=== PATIENT | male | born 1970 | race Caucasian/White ===

== ENCOUNTER 2019-08-20 11:07 | Emergency (ER) | payer SELFPAY ==
[~2019-08-20] VITALS: Ht 182.9 cm; Wt 117.9 kg
[2019-08-20] MEDS ORDERED: Cymbalta20 MG (11:34)
[2019-08-20] MEDS ORDERED: CITRATE OF MAG296 ML PO (13:22)
[2019-08-20] MEDS ORDERED: BISA5EC PO (13:22)
[2019-08-31] MEDS ORDERED: HYDR1TAB94 PO (09:07)
== END 2019-08-20 13:45 | disposition home or self-care (01) ==
LOC: ER 11:07
DX: K59.00 Constipation, unspecified (principal); Z87.891 Personal history of nicotine dependence; Z79.899 Other long term (current) drug therapy
CPT/HCPCS: 74018; 99283-25

== ENCOUNTER 2019-09-09 12:41 | Inpatient (IN) | payer OTHER ==
[~2019-09-09] VITALS: Ht 182.9 cm; Wt 122.0 kg
[~2019-09-09 12:41] MED LIST: BISA5EC PO; CITRATE OF MAG296 ML PO; Cymbalta20 MG PO; HYDR1TAB94 PO
--- NOTE | 2019-09-09 13:44 | NUR ---
Ambulatory in Day Surgery.PT REPORTS 6/10 LEFT ARM PAIN. SPLINT AND MARYJANE WRAP IN PLACE TO LEFT ARM. ELEVATED ON PILLOW. HISTORY AND ALLERGIES REVIEWED. NPO STATUS CONFIRMED. LUNGS CLEAR-SATS>90% ON RA.
--- NOTE | 2019-09-10 03:11 | NUR ---
Patient A/O x4. VSS. Complaints of moderate pain to Left arm. Medicated as ordered; pain managed. Tolerating PO. Ambulating to bathroom, voiding freely. Saline locked. CMS intact.
[2019-09-10 03:55] LABS: BASOPHILS ABSOLUTE AUTO 0.03 K/mm3 (0.00-0.23); BASOPHILS PERCENT AUTO 0 % (0-2); EOSINOPHILS ABSOLUTE AUTO 0.01 K/mm3 (0.00-0.68); EOSINOPHILS PERCENT AUTO 0 % (0-6); Hematocrit 46.2 % (37.0-53.0); Hemoglobin 14.6 g/dL (13.5-17.5); IMMATURE GRAN ABSOLUTE AUTO 0.05 K/mm3 (0.00-0.10); IMMATURE GRAN PERCENT AUTO 0 % (0-1); LYMPHOCYTES ABSOLUTE AUTO 1.72 K/mm3 (0.84-5.20); LYMPHOCYTES PERCENT AUTO 10 % (21-46); MONOCYTES ABSOLUTE AUTO 1.08 K/mm3 (0.16-1.47); MONOCYTES PERCENT AUTO 6 % (4-13); Mean Corpuscular HGB 26.9 pg (26.0-34.0); Mean Corpuscular HGB Conc 31.6 g/dL (31.5-36.5); Mean Corpuscular Volume 85 fL (80-100); Mean Platelet Volume 10.4 fL (9.1-12.4); NEUTROPHILS ABSOLUTE AUTO 14.23 K/mm3 (1.96-9.15); NEUTROPHILS PERCENT AUTO 83 % (41-73); Platelet Count 377 K/mm3 (150-400); RDW Coefficient Variation 13.2 % (11.7-14.2); RDW Standard Deviation 41.1 fL (35.1-46.3); Red Blood Cell Count 5.43 M/mm3 (4.30-5.90); White Blood Cell Count 17.12 K/mm3 (4.00-11.30)
--- NOTE | 2019-09-10 07:34 | NUR ---
PT REPORTS ABLE TO MOVE L ARM SOME NOW IT APPEARS THAT THE BLOCK THEY GAVE ME IS WEARING OFF. PT REPORTS PAIN IS AT AN 8/10 BUT THAT HE DOES NOT NEED PAIN MEDICATION UNTIL THE PAIN IS A 9/10 BECAUSE HE DEALS WITH CHRONIC PAIN TO BILATERAL ANKLES/FEET. PT HAS EXTERNAL FIXATION TO L WRIST AREA. CAP REFILL IS BRISK TO FINGERS. PT HAS MINIMAL SWELLING TO FINGERS. PT HAS LUE ELEVATED ON PILLOWS WITH ICE IN PLACE. PT STATES HE HAS A RASH ON LEFT BICEP AREA THAT HE GETS WHEN HE HAS STRESS, HE REPORTS HAVING IT A LITTLE BIT LOWER RECENTLY AND THAT SITE HAS HEALED UP. DISCUSSED PAIN MGMT WITH PT. PT REPORTS DOES NOT SMOKE OR DRINK. PT IS ABLE TO WIGGLE FINGERS WITHOUT DIFFICULTY.
--- NOTE | 2019-09-10 10:03 | NUR ---
DR REZA AND CYNDY HERE TO SEE PT. DISCUSSED PT'S STATUS.
--- NOTE | 2019-09-10 16:07 | NUR ---
DR REZA RECENTLY NOTIFIED OF PT HAVING INCREASED PAIN TO L WRIST. PT CAP REFILL WNL LESS THAN 3 SECONDS. PT BEEN ICING AND ELEVATING IT. SEE ORDERS.
--- NOTE | 2019-09-10 16:50 | NUR ---
DISCUSSED PAIN MGMT WITH PT. PT REPORTS THAT IT FEELS LIKE THE BLOCK THAT HE HAD HAS WORN OFF. PT MED FOR PAIN.
--- NOTE | 2019-09-10 17:59 | NUR ---
SHIFT [employer] PT EATING AND DRINKING. PT VOIDING. PT PAIN INCREASED THIS AFTERNOON, PT FELT THAT THE BLOCK WAS WORE OFF. WAS NOTIFIED. SEE ORDERS. PT MED FOR PAIN ORDERED PRN. PT REPORTED PAIN WAS BETTER THIS EVENING AT TOLERABLE LEVEL. PT UP IND WITH STEADY GAIT. PT USING CALL LIGHT APPR.
--- NOTE | 2019-09-11 07:43 | NUR ---
SHIFT SUMMARY POD#2 LEFT ORIF WITH EXTERNAL HARDWARE. AAOX4. DISCOMFORT CONTROLLED WITH 20MG ROXICODONE Q4H + EXTENDED RELEASE Q12 + 1MG IV DILAUDID X3 THIS SHIFT FOR BREAKTHROUGH. NO NAUSEA/EMESIS. DRESSING TO LUE WITH SCANT AMOUNT RED DRY DRAINAGE, NO INCREASE IN DRAINAGE THIS SHIFT. PT UP SBA IN ROOM, AMBULATES WELL. POSSIBLE DC TODAY IF PAIN IS CONTROLLED. PT SITTING UP IN BED AT THIS TIME, CALL STEVE GUSMAN. REPORT TO DAY SHIFT RN.
[2019-09-11] MEDS ORDERED: Percocet 7.5-31 EACH PO (08:29)
--- NOTE | 2019-09-11 12:03 | NUR ---
1137 discharged to home with
== END 2019-09-11 11:32 | disposition home or self-care (01) | DRG 512 ==
LOC: ORSCMMR 12:41 → SURS 20:37 → ORSCMMR 20:38 → SURS 09-10 10:11
PROVIDERS: ADMIT Orthopaedic Surgery
PROC: 0PSJ04Z Reposition Left Radius with Internal Fixation Device, Open Approach (ICD-10-PCS; principal; 2019-09-09 14:00)
DX: S52.572A Other intraarticular fracture of lower end of left radius, initial encounter for closed fracture (principal); S63.015A Dislocation of distal radioulnar joint of left wrist, initial encounter; W13.2XXA Fall from, out of or through roof, initial encounter
CPT/HCPCS: 36415; 73100; 85025; 90686; 97165; 97530; A9270; C1713; G0378; J0690; J1100; J1170; J2250; J2405; J2704; J3010; J7120

== ENCOUNTER 2019-12-11 06:03 | Day surgery (SDC) | payer OTHER ==
[~2019-12-11] VITALS: Ht 182.9 cm; Wt 121.2 kg
[~2019-12-11 06:03] MED LIST changes: +IBUP800; +Percocet 7.5-31 EACH PO
--- NOTE | 2019-12-11 08:08 | NUR ---
12/11/19 0808 Becki Matamoros HARDWARE CLEANED AND RETURNED TO PT PER PT REQUEST.
== END 2019-12-11 10:00 | disposition home or self-care (01) ==
LOC: ORSCSDS 06:03
PROVIDERS: Orthopaedic Surgery
PROC: 0PPJ04Z Removal of Internal Fixation Device from Left Radius, Open Approach (ICD-10-PCS; principal; 2019-12-11 07:30)
DX: S52.572D Other intraarticular fracture of lower end of left radius, subsequent encounter for closed fracture with routine healing (principal); S63.015D Dislocation of distal radioulnar joint of left wrist, subsequent encounter; Z47.2 Encounter for removal of internal fixation device; Z87.891 Personal history of nicotine dependence; E66.01 Morbid (severe) obesity due to excess calories; Z68.36 Body mass index [BMI] 36.0-36.9, adult
CPT/HCPCS: A9270-GY; J0171; J0690; J2250; J2405; J3010; J7120

== ENCOUNTER 2022-05-07 05:56 | Day surgery (SDC) | payer OTHER ==
[~2022-05-07] VITALS: Ht 182.9 cm; Wt 127.0 kg
[~2022-05-07 05:56] MED LIST changes: +ALBU90OI INH; +Acetaminophen650 M1 PO; +IBUP600 PO
--- NOTE | 2022-05-07 07:36 | NUR ---
0630 History, Chart, Medications and Allergies reviewed before start of procedure.PRE OP TEACHING DONE, AT BEDSIDE
--- NOTE | 2022-05-07 10:06 | NUR ---
Discharge instructions reviewed with patient. Patient verbalizes understanding. Copy given to patient to take home. Patient up to Ambulate independently. Gait steady. Patient States Post-Procedure ride home has been arranged. Discharged via wheelchair to private car for ride home.
== END 2022-05-07 23:08 | disposition home or self-care (01) ==
LOC: ORSCMMR 05:56 → ORD 07:30 → ORSCMMR 07:30
PROVIDERS: Surgery
PROC: 0DBQ7ZZ Excision of Anus, Via Natural or Artificial Opening (ICD-10-PCS; principal; 2022-05-07 07:30)
DX: K60.3 Anal fistula (principal); Z87.891 Personal history of nicotine dependence; J44.9 Chronic obstructive pulmonary disease, unspecified; Z79.899 Other long term (current) drug therapy; E66.9 Obesity, unspecified; Z68.39 Body mass index [BMI] 39.0-39.9, adult
CPT/HCPCS: A9270; J1100; J2250; J2405; J2704; J2765; J2795; J3010; J7120

== ENCOUNTER 2022-05-25 12:12 | Day surgery (SDC) | payer OTHER ==
[~2022-05-25] VITALS: Ht 182.9 cm; Wt 125.6 kg
--- NOTE | 2022-05-25 12:50 | NUR ---
Ambulatory in Day Surgery History, Chart, Medications and Allergies reviewed before start of procedure. Lungs clear T/O to Auscultation. Pre-Op teaching done. Pt verbalizes understanding. Patient States Post-Procedure ride home has been arranged.
--- NOTE | 2022-05-25 14:34 | NUR ---
05/25/22 1433 Susan Simon NO PREOP ABX NO LOCAL
--- NOTE | 2022-05-25 15:36 | NUR ---
Patient up to Ambulate independently. Gait steady. Discharge instructions reviewed with patient. Patient verbalizes understanding. Copy given to patient to take home. History, Chart, Medications and Allergies reviewed before start of procedure.Patient States Post-Procedure ride home has been arranged. Discharged via wheelchair to private car for ride home.
== END 2022-05-25 15:39 | disposition home or self-care (01) ==
LOC: ORSCMMR 12:12 → ORD 13:45 → ORSCMMR 15:39
PROVIDERS: Surgery
PROC: 0DBQXZZ Excision of Anus, External Approach (ICD-10-PCS; principal; 2022-05-25 13:45)
DX: K60.3 Anal fistula (principal); G89.18 Other acute postprocedural pain; J44.9 Chronic obstructive pulmonary disease, unspecified; E78.5 Hyperlipidemia, unspecified; E66.9 Obesity, unspecified; Z68.37 Body mass index [BMI] 37.0-37.9, adult; Z87.891 Personal history of nicotine dependence; Z79.899 Other long term (current) drug therapy
CPT/HCPCS: A9270; J1100; J1885; J2405; J2704; J3010; J7120